=== PATIENT | male | born 1950 | race Caucasian/White ===

== ENCOUNTER → 2018-07-13 | Outpatient (CLI) | payer OTHER ==
--- NOTE | 2018-07-14 05:19 | PAP/PSG TECHNICIAN REPORT ---
[facility] Can Pusher Polysomnogram Report Study name: None Report date: 07/14/2018 Study date: 07/13/2018 Referring Physician: Regino Bardales Name: CHLOÉ AMIN Interpreting Physician: Chris Moreland M.D. Date of : 1950 Can Pusher: Agnieszka Mayer [facility]. Sex: Male Age: 67 StudyType: PSG Weight: 187 lbs Height: 67 years, Height 5' 8" Neck Circum:16inches BMI: 28.43 Medications: Gemfibrozil 600mg, Metformin 500mg, Ezetimibe 10mg, Lisinopril 5mg, Rosuvastatin 20mg, Fluoxetine 40mg, ASA 81mg Patient History Study started on room air with no ETCO2 monitoring in room #6. 67 yr old male here tonight for a diagnostic psg. He complains of EDS and some snoring. He wakes up frequently to use the restroom (about every two hours). He has had two heart attacks, one in 2010 and then one in 2011. His ESS=10/24. Neck circ=16inches. Parameters Monitored NPSG: E1-M2, E2-M1, Fp1-M2, Fp2-M1, F3-M2, F4-M2, F4-M1, C3-M2, C4-M2, C4-M1, O1-M2, O2-M2, O2-M1, T3-M2, T4-M1, P3-M2, P4-M1, CHIN1, CHIN2, HR, EKG, Legs, PFLOW, SNOR, FLOW, CFLOW, Tidal Volume, THOR, ABDO, SpO2, PLTH, CPRESS, ETCO2 Wave, ETCO2, pH Sleep Architecture Sleep Stages Time at Lights Off 8:56:55 PM STAGES Time (min.) TST (%) Time at Lights On 5:14:55 AM Wake 152.0 -- Total Recording Time (TRT) 498.00 min. N1 28.5 8 Total Sleep Period (TSP) 430.0 min. N2 186.0 54 Total Sleep Time (TST) 346.0min. N3 71.5 21 Awake Time 152.0 min. REM 60.0 17 Wake after Sleep Onset 84.0 min. Sleep Efficiency (SE) 69 % Sleep Onset Latency (PASCALE) 68.0 min. Number of Stage 1 Shifts None Awakenings 23 Stage Changes 111 Number of REM periods 9 REM 60.0 17 REM Latency 132.0 min. NREM 286.0 83 Body Position Analysis Supine Right Left Side Prone Vertical Total Sleep Time (min.) 198.6 84.3 161.3 245.53 0.0 0.0 Total Sleep Time (%) 29% 24% 47% 71 0% N/A% Total Sleep Time REM (min.) 0.2 0.0 59.8 None 0.0 0.0 Total Sleep Time NREM (min.) 100.2 84.3 101.5 None 0.0 0.0 Intermittent Wake (min.) 98.2 15.6 38.2 None 0.0 0.0 Total Sleep Period (%) 33% None None None None None Arousals Myoclonus (PLM) * Events Count Index Events Count Index Spontaneous 17 3 Events Awake (PLMW) 78 30.8 Respiratory 11 1.7 Events Asleep w/ Arousal (PLMA) 17 2.9 PLM 17 3 Events Asleep w/o Arousal (PLMS) 219 38.0 Snoring 2 0 Total Asleep 236 40.9 Total 47 8 Total 314 38 Respiratory Analysis * CA OA MA CH H RERA Total Count 9 5 0 0 68 0 82 Index 1.6 0.9 0.0 0 11.8 0 14.2 Mean Duration 27.3 26.4 0.0 0.00 24.8 0.0 25.1 Longest Duration 34.0 34.9 0.0 0.00 0.0 0.0 47.8 Respiratory Event Summary Total Supine ~Supine Right Left Prone REM NREM Apneas Count 14 14 0 0 0 N/A 0 14 Index 2.4 8 0 0.0 0.0 N/A 0 3 Hypopneas (4% Desat) Count 68 58 10 4 6 N/A 4 64 Index 11.8 34.6 2 2.8 2.2 N/A 4.0 13.4 Apneas & All Hypopneas Count 82 72 10 4 6 N/A 4 78 Index 14.2 43 2 3 2 N/A 4.0 16.4 Respiratory Events (Airport Operations Crew Member+All Hyp+RERA) Count 82 72 10 4 6 N/A 4 78 Index 14.2 43 2 2.8 2.2 N/A 4.0 16.4 Respiratory Related Arousal Count 11 72 1 1 0 N/A 0 10 Index 1.7 5 0 1 0 N/A 0 2 Snoring Analysis Supine Right Left Prone REM NREM Total Snore duration 2.0 min Snores count 21 9 19 N/A 8 41 49 Snore mean duration 2.4 Sec Snores index 13 6 7 N/A 8.0 8.6 8.5 TST with snoring (%) 0.6% Desaturation Event Summary: Minimum %SpO2 Event Count Mean/Min/Max Duration(sec.) Desaturation Index % Time In Bed > 90 104 22.4 / 6.0 / 57.0 13.2 96.5 86 - 90 0 N/A 0.0 3.1 81 - 85 0 N/A 0.0 0.3 76 - 80 0 N/A 0.0 0.0 71 - 75 0 N/A 0.0 0.0 66 - 70 0 N/A 0.0 0.0 61 - 65 0 N/A 0.0 0.0 56 - 60 0 N/A 0.0 0.0 51 - 55 0 N/A 0.0 0.0 < 50 0 N/A 0.0 0.0 Total REM NREM Awake <50% 0.0 min. 0.0 min. 0.0 min. 0.0 min. 51 - 60% 0.0 min. 0.0 min. 0.0 min. 0.0 min. 61 - 70% 0.0 min. 0.0 min. 0.0 min. 0.0 min. 71 - 80% 0.1 min. 0.0 min. 0.1 min. 0.0 min. 81 - 90% 17.0 min. 1.2 min. 14.3 min. 1.6 min. 91 - 100% 474.5 min. 58.8 min. 271.4 min. 144.2 min. Average 93 93 94 94 Minimum SpO2 79 88 79 82 Desaturation Event Index 12.5 6.0 17.6 5.9 # Desat. Events below 89% 38 1 33 4 Time(%) with Saturation below 89% 1.4 0.0 1.3 0.1 Time(min.) with Saturation below 89% 7.0 0.0 6.3 0.7 Time (mins) REM (mins) NREM (mins) % of TST SpO2 Below 90% 65 3 N62 2.7 SpO2 Below 88% 13 0 0 1 Heart Rate Analysis Min (bpm) Max (bpm) Average (bpm) Awake 49 75 57 NREM 48 65 54 REM 49 62 56 Overall 48 65 54 Supplemental O2 Values Minimum O2 level: None Value Start Time End Time Can Pusher Comments Mr. Amin slept in the right, left and supine positions. No cardiac arrhythmia noted. PLM's were noted. No bruxism noted. Snoring was noted and scored as a 2 on a scale of 1 through 5. (0=no snoring, 5=snoring loud enough to be heard through a closed door or down the [address]) He awoke to use the restroom 1 time during the night. He stated that he slept about the same as usual. The final report will be interpreted and signed by a sleep physician. The completed physician report will then be placed in the patient medical record. Therapy (cm H2O) 0 TIB (min.) 498.0 TST (min.) 346.0 Sleep Onset (min.) 68.0 REM Onset From Sleep (min.) 132.0 Sleep Efficiency % 69 Wakefulness (%) 31 Wakefulness (min.) 152.0 NREM 1 (%) 8 NREM 1 (min.) 28.5 NREM 2 (%) 54 NREM 2 (min.) 186.0 NREM 3 (%) 21 NREM 3 (min.) 71.5 REM (%) 17 REM (min.) 60.0 # Arousals 47 Arousal Index 8 # Snore 49 Snore Index 8.5 AHI 14.2 AHI Supine 43 AHI Non-Supine 2 NREM AHI 16.4 REM AHI 4.0 RDI 14.2 # Obstructive Apnea 5 # Central Apnea 9 # Mixed Apnea 0 # Hypopneas 68 RERAs 0 Total Respiratory Events 87 Time Below SpO2 89% (min.) 6.3 Mean NREM SpO2 (%) 94 Mean REM SpO2 (%) 93 Mean Sleep SpO2 (%) 93 Min NREM SpO2 (%) 79 Min REM SpO2 (%) 88 Position Supine (min.) 198.6 Position Non-supine (min.) 245.5 LM Index Sleep 40.9 LM Index NREM 42.4 LM Index REM 34.0 Mean Heart Rate (bpm) 54 Min Heart Rate (bpm) 48
--- NOTE | 2018-07-15 18:59 | POLYSOMNOGRAPH REPORT ---
CLINICAL DATA: A 67-year-old male with BMI of 28.[address] Regino Bardales with complaints of excessive daytime sleepiness, snoring, and frequent awakenings. He has had previous myocardial infarctions. SLEEP ARCHITECTURE: Total sleep period was 430 minutes. Total sleep time was 346 minutes divided between 286 minutes of non-REM sleep and 60 minutes of REM sleep. Sleep latency was delayed at 68 minutes. REM latency was 132 minutes. Sleep efficiency was 69%. Wake after sleep onset was 84 minutes. Sleep consisted of stage N1 8%, stage N2 54%, stage N3 21%, and REM 17%. AROUSAL DATA: 47 arousals were recorded for an index of 8 per hour. PLM DATA: Increased limb movements during sleep were noted. There were 236 limb movements during sleep noted for an index of 41 per hour with arousal index of 3 per hour. RESPIRATORY DATA: Mild sleep apnea was documented. The AHI was 14.2. There were 9 central and 5 obstructive apneic episodes. The longest duration of apnea was 35 seconds. There were 68 hypopneic episodes. The mean duration of hypopnea was 25 seconds. OXIMETRY DATA: Nocturnal hypoxemia was seen. Oxygen farhat was 79% during non-REM sleep, the mean saturation was 93%. Time below 88% was 13 minutes. EKG: Heart rates ranged from 48-65 beats per minute. No arrhythmias were noted. ASSISTANT PROFESSOR OF MUSIC'S COMMENTS: The patient slept in the right, left, and supine position. Snoring was mild, rated 2 on a scale of 1 through 5. IMPRESSION: Mild sleep apnea/hypopnea with an AHI of 14.2 with an oxygen farhat of 79%. RECOMMENDATIONS: The patient may benefit from a repeat sleep study with CPAP or use of an oral appliance. Clinical correlation is needed. [facility]
== END | disposition home or self-care (01) ==
LOC: C.NEUR 20:00
PROVIDERS: ATTEND Family Medicine
DX: G47.19 Other hypersomnia (principal); R53.83 Other fatigue